=== PATIENT | female | born 1950 | race Caucasian/White ===

== ENCOUNTER → 2016-09-17 | Outpatient (CLI) | payer BC ==
--- NOTE | 2016-09-18 08:51 | MA ---
Screening Digital Mammogram with Digital Breast Tomosynthesis Clinical Indications: Routine screening. Technique: Standard cephalocaudal projections are obtained. Digital breast tomosynthesis was perform ed in the MLO projection with reconstruction at 1.0 mm slice thickness and composite MLO views recons tructed. This examination is processed by the CAD computer aided detection system. Comparison: August 25, 2015; August 16, 2014; studies dating back to April 17, 2008 Breast density: B; There are scattered areas of fibroglandular density. Findings: CAD was reviewed. There are no new masses, new clusters of microcalcifications, or significant axillary lymphadenopathy . Impression: Negative mammogram. BI-RADS 1. Recommendation: Routine screening mammogram is recommended in one year. [facility] will send a result letter to the patient. Negative mammography should not preclude additional workup of a clinically suspicious finding. The patient's information is entered into a reminder system with a target due date for her next mammo gram.
== END ==
LOC: FIMAGING 15:09
DX: Z12.31 Encounter for screening mammogram for malignant neoplasm of breast (principal)
CPT/HCPCS: G0202

== ENCOUNTER → 2016-10-13 | Outpatient (CLI) | payer BC ==
--- NOTE | 2016-10-16 11:18 | DX ---
PA and lateral chest. Clinical History: Cough x1 month. Comparison Study: September 03, 2014.. Findings: The lungs are clear. No pleural disease identified. Heart size is normal. Degenerative changes are present in the mid thoracic spine.. Impression: Negative chest.
== END ==
LOC: BMCIMAGING 14:27
PROVIDERS: ATTEND Internal Medicine
DX: R05 Cough (principal)

== ENCOUNTER → 2016-11-03 | Outpatient (CLI) | payer BC | LOC: FIMAGING 14:23 | PROVIDERS: ATTEND Internal Medicine | DX: Z13.820 Encounter for screening for osteoporosis (principal); M85.80 Other specified disorders of bone density and structure, unspecified site ==

== ENCOUNTER 2017-01-01 20:24 | Observation (INO) | payer BC, OTHER ==
[2017-01-01] MEDS ORDERED: ONDANSETRON 4 MG/2 ML VIAL IVP ONE (20:49)
[2017-01-01] MEDS ORDERED: NS 1,000 ML IV ONE ×2 (20:55→21:46)
[2017-01-01 21:03] LABS: % IMMATURE GRANULYOCYTES 0.5 % (0.0-1.1); ABSOLUTE IMMATURE GRANULOCYTES 0.06 10^3/uL (0.00-0.10); ADD DIFF? NO; ADD MORPH? NO; ADD SCAN? NO; ATYPICAL LYMPHOCYTE FLAG 0 (0-99); FRAGMENT RBC FLAG 0 (0-99); HEMATOCRIT 40.8 % (38.0-47.0); HEMOGLOBIN 13.9 g/dL (12.6-16.3); LEFT SHIFT FLG 20 (0-99); LIPEMIA HEMOLYSIS FLAG 90 (0-99); MEAN CELL HEMOGLOBIN 32.2 pg (27.9-34.1); MEAN CELL HEMOGLOBIN CONCENTR. 34.1 g/dL (32.4-36.7); MEAN CELL VOLUME 94.4 fL (81.5-99.8); MEAN PLATELET VOLUME 9.7 fL (8.7-11.7); PLATELET CLUMPS FLAG 20 (0-99); PLATELET COUNT 240 10^3/uL (150-400); RED BLOOD CELL COUNT 4.32 10^6/uL (4.18-5.33); RED CELL DISTRIBUTION WIDTH 11.9 % (11.5-15.2)
[2017-01-01 21:15] LABS: ALANINE AMINOTRANSFERASE 31 IU/L (9-52); ALBUMIN 4.4 g/dL (3.5-5.0); ALKALINE PHOSPHATASE 96 IU/L (38-126); ANION GAP 12 mEq/L (8-16); ASPARTATE AMINOTRANSFERASE 21 IU/L (14-46); BILIRUBIN,TOTAL 0.6 mg/dL (0.1-1.4); CALCIUM 9.6 mg/dL (8.5-10.4); CARBON DIOXIDE 23 mEq/l (22-31); CHLORIDE 105 mEq/L (97-110); CREATININE 1.2 mg/dL (0.6-1.0); GLOMERULAR FILTRATION RATE 45; GLUCOSE 135 mg/dL (70-100); POTASSIUM 4.1 mEq/L (3.5-5.2); SODIUM 140 mEq/L (134-144); TOTAL PROTEIN 7.3 g/dL (6.3-8.2)
[2017-01-01] MEDS ORDERED: HYDROmorphONE/DILAUDID 1 MG/ML SYR IVP ONE (21:46)
[2017-01-01 22:45] LABS: COLOR YELLOW; LEUKOCYTE ESTERASE,URINE NEGATIVE (NEGATIVE); NITRITE,URINE NEGATIVE (NEGATIVE)
--- NOTE | 2017-01-01 23:04 | EDPHY ---
H & P Time Seen by Provider: 01/01/17 21:20 HPI/ROS: Chief complaint. Abdominal pain HPI. Patient is a 66-year-old female sharp right side had a aid flank and right lower quadrant abdominal pain that began at 2:00 p.m. this afternoon. Comes and goes. Worse with movement. No urinary symptoms. She has had constipation the last several days. She has a history of kidney stones. No fever cough or chest pain or shortness of breath. No vomiting or diarrhea ROS Constitutional. no fever/chills, no weakness Eyes. no problems with vision ENT. no sore throat, no nasal drainage Cardiovascular. no chest pain Respiratory. no shortness of breath, no cough Abdominal. Right flank and right lower quadrant abdominal pain . no problems urinating MS. no calf pain/swelling, no neck/back pain, no joint pain Skin. no rash Lymph. no swollen glands Neuro. no headache, no dizziness, no difficulty walking or with speech Past Medical/Surgical History: Past medical history PTSD, depression, kidney stones Social History: , nonsmoker, no alcohol Smoking Status: Never smoked Physical Exam: General Appearance: Alert well-developed female moderate distress vital signs are stable Eyes: Pupils equal and round no pallor or injection. ENT, Mouth: Mucous membranes are moist. Respiratory: There are no retractions, lungs are clear to auscultation. Cardiovascular: Regular rate and rhythm. Gastrointestinal: Abdomen is soft with diffuse tenderness in the right side of her abdomen. Not pinpoint tenderness in the right lower quadrant at McBurney's point. No masses. Normal bowel sounds Neurological: Awake and alert, sensory and motor exams grossly normal. Skin: Warm and dry, no rashes. Musculoskeletal: Neck is supple nontender. Extremities symmetrical, full range of motion. Psychiatric: Patient is oriented X 3, there is no agitation. Constitutional: Initial Vital Signs Temperature (C) 36.4 C 01/01/17 20:27 Heart Rate 82 01/01/17 20:27 Respiratory Rate 18 01/01/17 20:27 Blood Pressure 146/84 H 01/01/17 20:27 O2 Sat (%) 98 01/01/17 20:27 O2 Delivery Mode Room Air Allergies/Adverse Reactions: morphine Allergy (Unknown, Verified 01/01/17 20:30) cephalexin monohydrate [From Keflex] Allergy (Verified 01/01/17 20:30) metronidazole [From Flagyl] Allergy (Verified 01/01/17 20:30) Metronidazole HCl [From Flagyl] Allergy (Verified 01/01/17 20:30) Penicillins Allergy (Verified 01/01/17 20:30) solifenacin succinate [From Vesicare] Allergy (Verified 01/01/17 20:30) Sulfa (Sulfonamide Antibiotics) Allergy (Verified 01/01/17 20:30) sulfamethoxazole [From Bactrim] Allergy (Verified 01/01/17 20:30) trimethoprim [From Bactrim] Allergy (Verified 01/01/17 20:30) Home Medications: Medication Instructions Recorded Aspirin [Aspirin 81mg (OTC)] 81 mg PO DAILY 05/17/14 Atorvastatin Calcium [Lipitor 10 10 mg PO HS 05/17/14 mg (RX)] Calcium Carbonate [[id number]] 500 mg PO DAILY 05/17/14 Herbals/Supplements -Info Only 1 ea PO DAILY 05/17/14 Levothyroxine [Synthroid 100 mcg 100 mcg PO DAILY06 05/17/14 (RX)] Sertraline HCl [Zoloft] 50 mg PO HS 05/17/14 buPROPion XL [Wellbutrin Xl] 150 mg PO DAILY 05/17/14 Fluticasone Nasal [Flonase Nasal 1 sprays NASAL HS 05/18/14 [place] (RX)] Galantamine Hydrobromide [Razadyne 8 mg PO BIDMEAL 01/01/17 8 MG (*)] Levomilnacipran HCl [Fetzima] 120 mg PO 01/01/17 Phentermine/Topiramate [Qsymia 1 each PO DAILY 01/01/17 3.75 mg-23 mg Capsule] Medical Decision Making - Diagnostics Imaging Results: Imaging Impressions Abdomen CT 01/01/17 23:00 Impression: 1. 5.4 mm calculus the proximal right ureter at the ureteropelvic junction with moderate right hydronephrosis. 2. Constipation. Results called and discussed with Dr. Jose D Helm at 01/01/2017 23:51. CT abdomen with IV contrast shows a 5.4 mm stone with moderate proximal hydronephrosis at the ureteropelvic junction with moderate hydronephrosis. No evidence for appendicitis Procedures: IV normal saline. Dilaudid for pain. Zofran for nausea It took 2 L of saline for the patient produced urine. There is no evidence of blood in her urine Patient is also given Toradol and Flomax ED Course/Re-evaluation: Re-evaluation 11:45 p.m.--patient is stable. She, her , and I discussed imaging and lab results. We discussed treatment plan and including importance of follow-up. She feels that pain control is an issue and needs to stay in the hospital. I consulted and discussed case with Dr. Lopes, hospitalist, who agrees to the admission I also consulted and discussed case with Dr. Méndez, urologist, who will see the patient in the hospital Differential Diagnosis: I considered pyelonephritis, urinary tract infection, kidney stone, diverticulitis, appendicitis - Data Points Laboratory Results: Laboratory Results 01/01/17 20:45 01/01/17 20:45 01/01/17 01/01/17 01/01/17 22:30 20:45 20:45 WBC 12.08 10^3/uL H 10^3/uL (3.80-9.50) RBC 4.32 10^6/uL 10^6/uL (4.18-5.33) Hgb 13.9 g/dL g/dL (12.6-16.3) Hct 40.8 % % (38.0-47.0) MCV 94.4 fL fL (81.5-99.8) MCH 32.2 pg pg (27.9-34.1) MCHC 34.1 g/dL g/dL (32.4-36.7) RDW 11.9 % % (11.5-15.2) Plt Count 240 10^3/uL 10^3/uL (150-400) MPV 9.7 fL fL (8.7-11.7) Neut % (Auto) 80.9 % H % (39.3-74.2) Lymph % (Auto) 11.5 % L % (15.0-45.0) [place] % (Auto) 6.0 % % (4.5-13.0) Eos % (Auto) 0.6 % % (0.6-7.6) Baso % (Auto) 0.5 % % (0.3-1.7) Nucleat RBC Rel Count 0.0 % % (0.0-0.2) Absolute Neuts (auto) 9.77 10^3/uL H 10^3/uL (1.70-6.50) Absolute Lymphs (auto) 1.39 10^3/uL 10^3/uL (1.00-3.00) Absolute Monos (auto) 0.73 10^3/uL 10^3/uL (0.30-0.80) Absolute Eos (auto) 0.07 10^3/uL 10^3/uL (0.03-0.40) Absolute Basos (auto) 0.06 10^3/uL 10^3/uL (0.02-0.10) Absolute Nucleated RBC 0.00 10^3/uL 10^3/uL (0-0.01) Immature Gran % 0.5 % % (0.0-1.1) Immature Gran # 0.06 10^3/uL 10^3/uL (0.00-0.10) Sodium 140 mEq/L mEq/L (134-144) Potassium 4.1 mEq/L mEq/L (3.5-5.2) Chloride 105 mEq/L mEq/L (97-110) Carbon Dioxide 23 mEq/l mEq/l (22-31) Anion Gap 12 mEq/L mEq/L (8-16) BUN 18 mg/dL mg/dL (7-23) Creatinine 1.2 mg/dL H mg/dL (0.6-1.0) Estimated GFR 45 Glucose 135 mg/dL H mg/dL (70-100) Calcium 9.6 mg/dL mg/dL (8.5-10.4) Total Bilirubin 0.6 mg/dL mg/dL (0.1-1.4) AST 21 IU/L IU/L (14-46) ALT 31 IU/L IU/L (9-52) Alkaline Phosphatase 96 IU/L IU/L (38-126) Total Protein 7.3 g/dL g/dL (6.3-8.2) Albumin 4.4 g/dL g/dL (3.5-5.0) Lipase 39.0 IU/L IU/L (23-300) Urine Color YELLOW Urine Appearance MODERATELY TURBID Urine pH 8.0 H (5.0-7.5) Ur Specific [place] 1.010 (1.002-1.030) Urine Protein NEGATIVE (NEGATIVE) Urine Ketones NEGATIVE (NEGATIVE) Urine Blood NEGATIVE (NEGATIVE) Urine Nitrate NEGATIVE (NEGATIVE) Urine Bilirubin NEGATIVE (NEGATIVE) Urine Urobilinogen NEGATIVE EU EU (0.2-1.0) Ur Leukocyte Esterase NEGATIVE (NEGATIVE) Urine Glucose NEGATIVE (NEGATIVE) Medications Given: Discontinued Medications Hydromorphone HCl (Dilaudid) 0.5 mg IVP EDNOW ONE Stop: 01/01/17 21:47 Last Admin: 01/01/17 22:50 Dose: 0.5 mg Sodium Chloride (Ns) 1,000 mls @ 0 mls/hr IV ONCE ONE PRN Reason: Wide Open Stop: 01/01/17 20:56 Last Admin: 01/01/17 20:56 Dose: 1,000 mls Sodium Chloride (Ns) 1,000 mls @ 0 mls/hr IV ONCE ONE PRN Reason: Wide Open Stop: 01/01/17 21:47 Last Admin: 01/01/17 22:14 Dose: 1,000 mls Ondansetron HCl (Zofran) 4 mg IVP EDNOW ONE Stop: 01/01/17 20:50 Last Admin: 01/01/17 20:55 Dose: 4 mg Departure - Departure Disposition: [facility] Inpatient Acute Clinical Impression: Renal colic on right side Condition: Fair Referrals: Nicky Chun MD [Primary Care Provider] - As per Instructions
[2017-01-01] MEDS ORDERED: IOPAMIDOL (ISOVUE-300) 100 ML BTL IV ONE (23:05)
[2017-01-01] MEDS ORDERED: TAMSULOSIN HCL 0.4 MG CAP PO ONE (23:54)
[2017-01-01] MEDS ORDERED: KETOROLAC 30 MG/1 ML SDV IVP ONE (23:54)
[2017-01-02] MEDS ORDERED: NS 1,000 ML IV ONE (00:45)
[2017-01-02] MEDS ORDERED: HYDROmorphONE/DILAUDID 1 MG/ML SYR IVP PRN (02:04)
[2017-01-02] MEDS ORDERED: ACETAMINOPHEN 325 MG TAB PO PRN (02:04)
[2017-01-02] MEDS ORDERED: ONDANSETRON 4 MG/2 ML VIAL IVP PRN (02:04)
[2017-01-02] MEDS ORDERED: ONDANSETRON DISINTEGRATING 4 MG TAB PO PRN (02:04)
[2017-01-02] MEDS ORDERED: ATORVASTATIN CALCIUM 10 MG TAB ONE (02:49)
[2017-01-02] MEDS ORDERED: SERTRALINE HCL 25 MG TAB ONE (02:50)
[2017-01-02] MEDS: ATORVASTATIN CALCIUM 10 MG TAB PO SCH ×2 (02:52→20:01)
[2017-01-02] MEDS: FLUTICASONE NASAL 120 SPRAYS/16 GM MDI NS SCH ×2 (02:53→20:03)
--- NOTE | 2017-01-02 04:20 | GHP ---
[f rep st] HISTORY AND PHYSICAL DATE OF ADMISSION: 01/02/2017 The patient is a pleasant 66-year-old female with a history of nephrolithiasis, closed head injury, chronic urge incontinence. She presents with right-sided flank pain. Began abruptly at the hair sa delia today at 2 p.m., sharp. She thought it was a menstrual cramp, but she acknowledges she is 66 an d at low risk for those. She has not noticed any hematuria. She has not had shortness of breath, c hest pain, cough, fever, chills. No urgency, frequency, dysuria. She presented to the emergency department. A CT scan showed a 5.4 mm stone on the right side, as we ll as constipation. When I speak with her, she feels well. She says her pain is resolved. REVIEW OF SYSTEMS: Complete 10-point review of systems conducted and negative except as noted in th e HPI. PAST MEDICAL HISTORY: 1. Nephrolithiasis. 2. Closed head injury. 3. PTSD. 4. Preeclampsia. 5. Chronic urge incontinence. 6. Vertigo. 7. Gestational diabetes. 8. Neuropathy. FAMILY HISTORY: Noted for coronary disease and diabetes. SOCIAL HISTORY: . Retired adjunct faculty mathematics department. No tobacco, alcohol, or drugs. ALLERGIES: Morphine, Keflex, metronidazole, penicillin, VESIcare, Bactrim. MEDICATIONS: At home, sertraline phentermine/topiramate, , aspirin, calcium carbonate, at orvastatin, Flonase, levomilnacipran, levothyroxine, bupropion, metformin. PHYSICAL EXAM: VITAL SIGNS: Temp 37.1, blood pressure 128/69, pulse 103 and abnormal, breathing 16 times a minute, 95% on room air. GENERAL: No acute distress. HEENT: Sclerae anicteric. Orophar ynx clear. Mucous membranes are moist. NECK: Supple without lymphadenopathy or JVD. LUNGS: Anita r to auscultation bilaterally. HEART: S1, S2. ABDOMEN: Soft, nontender, nondistended. LOWER EXT REMITIES: No edema. Calves nontender. SKIN: Without rash. NEUROLOGIC: Nonfocal. LABORATORY DATA: White count 12, hematocrit 41, platelets are 240,000. Sodium 140, potassium 4.1, chloride 105, bicarb 23, BUN 18, creatinine 1.2. Her baseline is about 0.9. She has presented with elevated creatinine in the setting of nephrolithiasis in the past. Glucose 135. LFTs normal. UA is negative including no hematuria. CT of the abdomen, images reviewed/interpreted by me, shows rig ht-sided stone at the ureteropelvic junction. Moderate right hydronephrosis. Discussed the case wi th Dr. Jose D Helm. ASSESSMENT/PLAN: A 66-year-old female with nephrolithiasis. 1. Nephrolithiasis. This is on the upper limit of normal of what might pass on its own. We will s tart her on Flomax, IV fluids, and Dilaudid. She received Toradol in the emergency department, whic h is an effective medication, but given her elevated creatinine will hold off on further Toradol for now. If her creatinine comes down with hydration, which I suspect it will, we can restart it. 2. Acute kidney injury. Hydronephrosis versus pre renal. She acknowledges she is dehydrated. She is urinating well now. Will re-evaluate in the morning. 3. Metformin therapy. Will hold metformin for now. 4. Posttraumatic stress disorder. Will continue her medications. 5. Prophylaxis. Pharmacologic prophylaxis indicated. 6. Disposition. Inpatient status. I think it might take a couple days for the stone to pass. /[id number]/MODL
[2017-01-02 06:11] LABS: ANION GAP 7 mEq/L (8-16); CALCIUM 8.5 mg/dL (8.5-10.4); CARBON DIOXIDE 22 mEq/l (22-31); CHLORIDE 112 mEq/L (97-110); CREATININE 1.4 mg/dL (0.6-1.0); GLOMERULAR FILTRATION RATE 37; GLUCOSE 188 mg/dL (70-100); POTASSIUM 4.1 mEq/L (3.5-5.2); SODIUM 141 mEq/L (134-144)
[2017-01-02] MEDS: LEVOTHYROXINE 100 MCG TAB PO SCH (06:36)
[2017-01-02] MEDS: NS 1,000 ML IV SCH ×2 (06:40→20:01)
[2017-01-02] MEDS: TAMSULOSIN HCL 0.4 MG CAP PO SCH (07:51)
[2017-01-02] MEDS: buPROPion XL 150 MG TAB PO SCH (07:51)
--- NOTE | 2017-01-02 07:56 | SOAPPROG ---
SOAP Progress Note Assessment/Plan: Assessment: Renal colic on right side Acute pain control noted Hydronephrosis Acute noted on CAT and Creat is mildly elevating--?related to hydro or toradol or both. pt and aware of this after discussion Ureterolithiasis Acute Pt declines rx at this time. sonogram suggested to confirm continued hydronephrosis, will not due at this time since pt desires no intervention Plan: hydration, pain control, strain urine. pt declines intervention at this time 01/02/17 08:11 Subjective: noted hx of stones and present sequence of events discussed in detail Objective: Vital Signs Temp Pulse Resp BP Pulse Ox 37.1 C 103 H 16 128/69 H 95 01/02/17 01:01 01/02/17 01:01 01/02/17 01:01 01/02/17 01:01 01/02/17 01:01 Laboratory Results 01/02/17 05:28 01/01/17 01/02/17 01/03/17 05:59 05:59 05:59 Intake Total 2500 Output Total 400 300 Balance 2100 -300 Physical Exam - Physical Exam General Appearance: alert Neck: supple Respiratory: No respiratory distress Cardiac/Chest: regular rate, rhythm Abdomen: soft Back: No CVA tenderness Skin: warm/dry Neuro/Psych: alert, oriented x 3 ICD10 Worksheet Patient Problems: Problems Problem Status Onset Renal colic on right side Acute Hydronephrosis Acute Ureterolithiasis Acute
[2017-01-02] MEDS ORDERED: IOPAMIDOL (ISOVUE-300) 150 ML BTL IV ONE (08:38)
[2017-01-02] MEDS ORDERED: PHENTERMINE PO SCH (09:00)
[2017-01-02] MEDS ORDERED: ENOXAPARIN 40 MG/0.4 ML SYR SC SCH (09:00)
[2017-01-02] MEDS ORDERED: GALANTAMINE HBr 8 MG TAB PO SCH (09:00)
[2017-01-02] MEDS ORDERED: TOPIRAMATE PO SCH (09:00)
[2017-01-02] MEDS ORDERED: Herbals/Supplements -Info Only PO SCH (09:00)
--- NOTE | 2017-01-02 09:00 | GCON ---
[f rep st] CONSULTATION DATE OF CONSULTATION: 01/02/2017 REQUESTING PHYSICIANS: Dr. Gagandeep Lopes via hospitalist and Dr. Helm via the emergency room. A total of 50 minutes was taken in the assessment, evaluation, and correspondence for this patient. HISTORY OF PRESENT ILLNESS: I have been asked to see this lady because she has had abdominal pain. She is 66 years old and has had previous stones and has had a ureteroscopy with stone removal by Dr. Jean-Baptiste in the past. She had acute onset of pain at 2 p.m. yesterday and not really documenting whether she has had assessment evaluation. At the present time, she has had a CAT scan that shows a right proximal ureteral calculus with hydronephrosis, her admitting creatinine of 1.2 and on hospital day #1 her creatinine is 1.4. Her pain is somewhat abated; and at the present time, I have outlined her labs that I have reviewed and her CT scan, which I reviewed in detail. REVIEW OF SYSTEMS: Negative for cardiac, respiratory, GI, endocrine, lymphovascular, and neurologic. PAST MEDICAL HISTORY: Posttraumatic stress syndrome, depression, and kidney stones. SOCIAL HISTORY: . Nonsmoker. No alcohol. ALLERGIES: I have reviewed morphine, cephalexin, metronidazole, penicillins, VESIcare. MEDICATIONS: Include atorvastatin, calcium, levothyroxine, sertraline, bupropion, Razadyne, levomilnacipran, phentermine, topiramate. PHYSICAL EXAM: VITAL SIGNS: Stable. CHEST: Clear. GENERAL: She is alert and oriented x3. HEENT: Pupils are equal with no pallor or injection. No scleral icterus. Mouth normal. HEART: Regular rate and rhythm. ABDOMEN: Normal. No organomegaly, rebound, or guarding. NEUROLOGIC: She is oriented x3 and affect appropriately. SKIN: Warm and dry. NECK: Supple. Full range of motion. EXTREMITIES: Lower extremities normal. LABORATORY DATA: I reviewed her labs and outlined those with her. ASSESSMENT: Right ureteral calculus with hydronephrosis and rising creatinine without suggestion of infection. Reviewed her labs that note this time. I have discussed with her and her via phone the options of do nothing and let her go home, continue with Flomax and hydration, or intervention. If we do intervention, it would be reasonable to do an ultrasound to confirm she still has hydronephrosis; but in light that she declines all therapy at this time, we will delay the ultrasound and she will ambulate, have a regular diet, and reconsider assessment and treatment options Thursday. /[id number]/MODL MTDD
[2017-01-02] MEDS: CALCIUM CARBONATE 500 MG TAB PO SCH (09:10)
[2017-01-02] MEDS: POLYETHYLENE GLYCOL 3350 17 GM PKT PO SCH (09:11)
[2017-01-02] MEDS: LEVOMILNACIPRAN HCL 120 MG PO SCH ×2 (09:14→09:46)
--- NOTE | 2017-01-02 10:31 | HOSPPROG ---
Hospitalist Progress Note Assessment/Plan: Kiki is a 66 y/o female who has a hx of nephrolithiasis, CHI and chronic urge incontinence. She developed significant pain and was noted to have a 5.4 mm stone on the right side. Today is my first encounter with the patient/ chart reviewed. *Nephrolithiasis seen and evaluated by Dr Katz to strain urine, monitor overnight and if she doesn't pass stone, will have intervention *moderate right hydronephrosis due to the above *STARLA creat increased even w hydration hold any nephrotoxic agents *leukocytosis ua shows no infection *Hyperglycemia/pre-diabetes metformin on hold *constipation resolved *Plan : continue IV hydration, repeat labs in a.m. Will require another midnight stay due to pain management and need for hydration Subjective: Radha is having some r sided flank pain but overall well controlled. Objective: Vital Signs Temp Pulse Resp BP Pulse Ox 36.9 C 78 18 113/59 L 96 01/02/17 08:14 01/02/17 08:14 01/02/17 08:14 01/02/17 08:14 01/02/17 08:14 Laboratory Results 01/02/17 05:28 01/01/17 01/02/17 01/03/17 05:59 05:59 05:59 Intake Total 2500 1000 Output Total 400 650 Balance 2100 350 - Physical Exam Constitutional: no apparent distress, appears nourished Eyes: PERRL Ears, Nose, Mouth, Throat: hearing normal Cardiovascular: regular rate and rhythym Respiratory: no respiratory distress, no rales or rhonchi Gastrointestinal: normoactive bowel sounds Skin: warm Musculoskeletal: full muscle strength, no muscle tenderness Neurologic: AAOx3 Psychiatric: interacting appropriately ICD10 Worksheet Patient Problems: Problems Problem Status Onset Renal colic on right side Acute Hydronephrosis Acute Ureterolithiasis Acute
[2017-01-02] MEDS ORDERED: NON-FORMULARY NEW DRUG (Bupropion Hcl [Wellbutrin Xl] 300 MG) PO SCH (12:15)
[2017-01-02] MEDS ORDERED: GALANTAMINE HBR 8 MG PO SCH (12:15)
[2017-01-02] MEDS ORDERED: CHOLECALCIFEROL VIT D3 2,000 UNITS TAB/CAP PO SCH (21:00)
[2017-01-02] MEDS ORDERED: CALCIUM CARB W/VIT D 500 MG TAB PO SCH (21:00)
[2017-01-02] MEDS ORDERED: SERTRALINE HCL 25 MG TAB PO SCH ×2 (21:00)
[2017-01-02 23:44] VITALS: RESP 16
[2017-01-03] MEDS: LEVOTHYROXINE 100 MCG TAB PO SCH (05:48)
[2017-01-03] MEDS: NS 1,000 ML IV SCH (05:49)
[2017-01-03 08:25] LABS: % IMMATURE GRANULYOCYTES 0.2 % (0.0-1.1); ABSOLUTE IMMATURE GRANULOCYTES 0.01 10^3/uL (0.00-0.10); ADD DIFF? NO; ADD MORPH? NO; ADD SCAN? NO; ATYPICAL LYMPHOCYTE FLAG 10 (0-99); FRAGMENT RBC FLAG 0 (0-99); HEMATOCRIT 33.3 % (38.0-47.0); HEMOGLOBIN 10.8 g/dL (12.6-16.3); LEFT SHIFT FLG 0 (0-99); LIPEMIA HEMOLYSIS FLAG 80 (0-99); MEAN CELL HEMOGLOBIN 31.4 pg (27.9-34.1); MEAN CELL HEMOGLOBIN CONCENTR. 32.4 g/dL (32.4-36.7); MEAN CELL VOLUME 96.8 fL (81.5-99.8); MEAN PLATELET VOLUME 9.8 fL (8.7-11.7); PLATELET CLUMPS FLAG 0 (0-99); PLATELET COUNT 159 10^3/uL (150-400); RED BLOOD CELL COUNT 3.44 10^6/uL (4.18-5.33); RED CELL DISTRIBUTION WIDTH 12.2 % (11.5-15.2)
[2017-01-03 08:57] LABS: ANION GAP 7 mEq/L (8-16); CALCIUM 8.3 mg/dL (8.5-10.4); CARBON DIOXIDE 26 mEq/l (22-31); CHLORIDE 111 mEq/L (97-110); CREATININE 0.8 mg/dL (0.6-1.0); GLOMERULAR FILTRATION RATE > 60; GLUCOSE 97 mg/dL (70-100); POTASSIUM 4.5 mEq/L (3.5-5.2); SODIUM 144 mEq/L (134-144)
[2017-01-03 09:00] VITALS: BP 138/73; PULSE 78; TEMP 98.2; O2SAT 97
[2017-01-03] MEDS ORDERED: LEVOMILNACIPRAN HCL 120 MG PO SCH (09:00)
[2017-01-03] MEDS: CALCIUM CARBONATE 500 MG TAB PO SCH (09:39)
[2017-01-03] MEDS: TAMSULOSIN HCL 0.4 MG CAP PO SCH (09:39)
[2017-01-03] MEDS: buPROPion XL 150 MG TAB PO SCH (09:40)
--- NOTE | 2017-01-03 09:46 | HOSPPROG ---
Hospitalist Progress Note Assessment/Plan: Kiki is a 66 y/o female who has a hx of nephrolithiasis, CHI and chronic urge incontinence. She developed significant pain and was noted to have a 5.4 mm stone on the right side. *Nephrolithiasis seen and evaluated by Dr Katz and Dr Méndez reviewed ultrasound/ some improvement patient prefers no intervention/will strain urine *moderate right hydronephrosis due to the above *STARLA resolved *leukocytosis resolved *Hyperglycemia/pre-diabetes metformin resumed *anemia *constipation resolved *Plan : dc today Subjective: Mili is feeling better/ pain has lifted. Objective: Vital Signs Temp Pulse Resp BP Pulse Ox 36.8 C 78 16 138/73 H 97 01/03/17 08:59 01/03/17 08:59 01/03/17 08:59 01/03/17 08:59 01/03/17 08:59 Laboratory Results 01/03/17 08:04 01/03/17 08:04 01/02/17 01/03/17 01/04/17 05:59 05:59 05:59 Intake Total 2500 3368 Output Total 400 5600 800 Balance 2100 -2232 -800 - Physical Exam Constitutional: no apparent distress, appears nourished, not in pain Eyes: PERRL Ears, Nose, Mouth, Throat: hearing normal Cardiovascular: regular rate and rhythym Respiratory: no respiratory distress Gastrointestinal: normoactive bowel sounds Skin: warm, normal color Musculoskeletal: full muscle strength Neurologic: AAOx3 Psychiatric: interacting appropriately ICD10 Worksheet Patient Problems: Problems Problem Status Onset Renal colic on right side Acute Hydronephrosis Acute Ureterolithiasis Acute
[2017-01-03] MEDS: POLYETHYLENE GLYCOL 3350 17 GM PKT PO SCH (09:53)
[2017-01-03] MEDS: TOPIRAMATE PO SCH ×2 (09:55→11:38)
[2017-01-03] MEDS: PHENTERMINE PO SCH ×2 (09:55→11:38)
[2017-01-03] MEDS ORDERED: metFORMIN SR 500 MG TAB PO SCH (10:11)
[2017-01-03] MEDS ORDERED: PHENTERMINE PO SCH (10:11)
[2017-01-03] MEDS ORDERED: TOPIRAMATE PO SCH (10:11)
[2017-01-03] MEDS ORDERED: ASPIRIN 81 MG CHEWABLE TAB PO SCH (10:30)
--- NOTE | 2017-01-03 13:52 | GDS ---
[f rep st] DISCHARGE SUMMARY DISCHARGE DIAGNOSES: 1. Nephrolithiasis. 2. Right hydronephrosis. 3. Acute kidney injury. 4. Leukocytosis. 5. Hyperglycemia, prediabetes. 6. Anemia. 7. Constipation. CONSULTATIONS DURING HER STAY: Andrea Katz MD Briefly, the patient is a 66-year-old female patient with a history of nephrolithiasis, closed head injury, and chronic urge incontinence. She presented with right-sided flank pain. A CT scan showed a 5.4 mm stone on the right side, as well as constipation. She was admitted and seen by Dr. Katz and seen by Dr. Méndez today. She had an abdominal pelvis ultrasound performed this morning. The findings are consistent with the patient being in the process of passing the right ureteral stone. She is feeling markedly better and prefers to see if the stone will pass on its own. She will follow up with Dr. Méndez or Dr. Katz in the outpatient setting. HOSPITAL COURSE PER PROBLEM: 1. Nephrolithiasis. Pain is much improved. Will have her follow up with a urologist. 2. Moderate right-sided hydronephrosis, this is due to the nephrolithiasis. 3. Acute kidney injury, resolved. 4. Leukocytosis, resolved. 5. Hyperglycemia, prediabetic. Metformin resumed. 6. Anemia. Follow up with her primary care provider. 7. Constipation, resolved. PENDING LABS AND TESTS: None. CONDITION AT DISCHARGE: Stable. PHYSICAL EXAMINATION: VITAL SIGNS: Blood pressure is pressure is 138/73, heart rate 78, respiratory rate is 16, O2 sats on room air 97%, temperature is 36.8 Celsius. MEDICATIONS AT DISCHARGE: Please see the EMR. DISCHARGE INSTRUCTIONS: 1. If she develops worsening pain, to return to the ER. 2. To follow up with the urologist next week. /[id number]/MODL MTDD
== END 2017-01-03 15:50 | disposition home or self-care (01) ==
LOC: INTOOBSV 01-02 00:01 → F3E 01-02 00:53
PROVIDERS: ADMIT Internal Medicine; ATTEND Internal Medicine
DX: N20.0 Calculus of kidney (principal); N13.30 Unspecified hydronephrosis; N17.9 Acute kidney failure, unspecified; D72.829 Elevated white blood cell count, unspecified; R73.9 Hyperglycemia, unspecified; R73.03 Prediabetes; D64.9 Anemia, unspecified; K59.00 Constipation, unspecified
CPT/HCPCS: 74177; 76770; 96361; 96374; 96375; 99285; G0378; J1170; J1650; J1885; J2405; Q9967

== ENCOUNTER → 2017-01-26 | Outpatient (CLI) | payer BC, OTHER | LOC: FIMAGING 14:42 | PROVIDERS: ATTEND Urology | DX: N20.1 Calculus of ureter (principal) ==

== ENCOUNTER → 2017-02-16 | Outpatient (CLI) | payer BC, OTHER | LOC: FIMAGING 14:39 | PROVIDERS: ATTEND Urology | DX: Z03.89 Encounter for observation for other suspected diseases and conditions ruled out (principal) ==

== ENCOUNTER → 2017-06-15 | Outpatient (CLI) | payer BC | LOC: BMCIMAGING 13:49 | PROVIDERS: ATTEND Orthopaedic Surgery Hand Surgery | DX: M79.642 Pain in left hand (principal); M79.641 Pain in right hand ==

== ENCOUNTER 2017-07-12 17:30 | Emergency (ER) | payer BC, OTHER ==
[2017-07-12 17:41] VITALS: TEMP 98.1
[2017-07-12] MEDS ORDERED: ONDANSETRON DISINTEGRATING 4 MG TAB ONE (19:23)
[2017-07-12] MEDS ORDERED: ONDANSETRON DISINTEGRATING 4 MG TAB PO ONE (19:24)
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
[2017-07-12] MEDS ORDERED: CYCLOBENZAPRINE 10MG PREPACK#3 BTL TAKEHOME ONE (20:26)
[2017-07-12] MEDS ORDERED: NAPROXEN SODIUM 220 MG TAB PO ONE (20:42)
[2017-07-12 20:55] VITALS: BP 140/73; PULSE 66; RESP 16; O2SAT 98
== END 2017-07-12 21:12 | disposition home or self-care (01) ==
DX: S09.90XA Unspecified injury of head, initial encounter (principal); S16.1XXA Strain of muscle, fascia and tendon at neck level, initial encounter; M50.30 Other cervical disc degeneration, unspecified cervical region; Z79.82 Long term (current) use of aspirin; V18.2XXA Unspecified pedal cyclist injured in noncollision transport accident in nontraffic accident, initial encounter

== ENCOUNTER → 2017-09-10 | Outpatient (CLI) | payer BC, OTHER | LOC: BMCIMAGING 15:24 | PROVIDERS: ATTEND Internal Medicine | DX: M79.644 Pain in right finger(s) (principal); S99.821A Other specified injuries of right foot, initial encounter ==

== ENCOUNTER → 2017-09-21 | Outpatient (CLI) | payer BC, OTHER | LOC: FIMAGING 14:00 | PROVIDERS: ATTEND Internal Medicine | DX: Z12.31 Encounter for screening mammogram for malignant neoplasm of breast (principal) ==

== ENCOUNTER → 2017-10-01 | Outpatient (CLI) | payer BC | LOC: FIMAGING 16:08 | PROVIDERS: ATTEND Urology | DX: R14.0 Abdominal distension (gaseous) (principal) ==

== ENCOUNTER → 2018-09-22 | Outpatient (CLI) | payer BC | LOC: FIMAGING 13:56 | PROVIDERS: ATTEND Internal Medicine | DX: Z12.31 Encounter for screening mammogram for malignant neoplasm of breast (principal) ==

== ENCOUNTER → 2019-01-25 | Outpatient (CLI) | payer BC | LOC: FIMAGING 14:23 ==

== ENCOUNTER → 2019-01-25 | Outpatient (CLI) | payer BC | LOC: FIMAGING 14:27 | PROVIDERS: ATTEND Urology | DX: M85.89 Other specified disorders of bone density and structure, multiple sites (principal); E03.9 Hypothyroidism, unspecified; Z78.0 Asymptomatic menopausal state; Z87.442 Personal history of urinary calculi ==